=== PATIENT | male | born 1945 | race Caucasian/White ===

== ENCOUNTER 2017-04-09 06:22 | Day surgery (SDC) | payer BC, MEDICARE ==
[~2017-04-09 06:22] MED LIST: Lactated Ringers 1,000 ML IV SCH
[2017-04-09] MEDS ORDERED: Acetaminophen 1,000 MG in Premix Bag 1 BAG IV ONE (07:52)
[2017-04-09] MEDS ORDERED: Bupivacaine 0.25%/EPINEPHrine 1:200,000 30 ML SDV ONE (08:16)
[2017-04-09] MEDS ORDERED: Ondansetron 4 MG/2 ML SDV ONE (08:21)
[2017-04-09] MEDS ORDERED: ceFAZolin 1 GM Vial ONE (08:21)
[2017-04-09] MEDS ORDERED: Ketorolac 30 MG/ML SDV ONE (08:21)
[2017-04-09] MEDS ORDERED: fentaNYL 100 MCG/2 ML SDV ONE (08:32)
[2017-04-09] MEDS ORDERED: Midazolam 1 MG/ML 2 ML SDV ONE (08:33)
[2017-04-09] MEDS ORDERED: Propofol 200 MG/20 ML SDV ONE (08:33)
[2017-04-09] MEDS ORDERED: Ketamine 200 MG/20 ML MDV ONE (08:33)
[2017-04-09] MEDS ORDERED: Bupivacaine 0.25%/EPINEPHrine 1:200,000 30 ML SDV INJECT ONE (08:43)
[2017-04-09 11:03] VITALS: BP 140/71
[2017-04-09] MEDS ORDERED: Acetaminophen/oxyCODONE 325-5 MG Tab PO PRN (11:03)
--- NOTE | 2017-04-09 17:27 | OR ---
PREOPERATIVE DIAGNOSIS: Left indirect inguinal hernia. POSTOPERATIVE DIAGNOSIS: Left indirect inguinal hernia. PROCEDURE PROPOSED: Left indirect inguinal hernia repair with mesh. PROCEDURE DONE: Left indirect inguinal hernia repair with mesh. INDICATION: This is a 71-year-old gentleman with a symptomatic left inguinal hernia and has developed recently. He has had a previous right-sided repair by myself a few years ago. TECHNIQUE: The patient was brought to the operative suite, given a general laryngeal mask anesthetic. The left groin was sterilely prepped and draped. The skin was locally anesthetized with 0.25% Marcaine with epinephrine. An oblique incision was made in the left groin and carried down through the subcutaneous tissue. The external oblique fascia was opened along its direction of fibers. The ilioinguinal nerve was isolated and preserved throughout the dissection. The patient was found to have an indirect hernia sac. It was freed up from the cord structures. He also had a cord lipoma that was trimmed away from the cord structures and removed by cautery at the internal ring. After freeing up the hernia sac, it was reduced and held in place with a plug of mesh which was anchored with several stitches of 0 Ethibond suture. I then placed a flat patch piece of mesh across the entire inguinal floor and around the inguinal cord and anchored medially to the symphysis pubis, inferiorly to the inguinal ligament, superiorly to the internal oblique, and placed around the cord and anchored over several Ethibond sutures. The cord and nerve were placed back in the normal position and the external oblique fascia was closed over the cord with a running 3-0 Vicryl. The subcutaneous tissue reapproximated with interrupted 3-0 Vicryl. The skin was closed with a subcuticular stitch of 4-0 Vicryl and a sterile dressing was applied. He tolerated the procedure well. There was minimal blood loss. He was awakened and taken to recovery room in good condition. SCM: 04/09/2017 09:22:02 MODL: 04/09/2017 17:21:46 /[id number]
== END 2017-04-09 14:30 | disposition home or self-care (01) ==
LOC: VM.SDS 06:22
PROVIDERS: ATTEND Surgery
DX: K40.90 Unilateral inguinal hernia, without obstruction or gangrene, not specified as recurrent (principal); E78.00 Pure hypercholesterolemia, unspecified; Z90.49 Acquired absence of other specified parts of digestive tract; Z98.890 Other specified postprocedural states; Z79.82 Long term (current) use of aspirin; Z79.899 Other long term (current) drug therapy
CPT/HCPCS: 49505; A9270; C1781; J0690; J1885; J2250; J2405; J2704; J3010; J7120; 00830

== ENCOUNTER 2022-03-26 17:26 | Emergency (ER) | payer MEDICARE, BC ==
[2022-03-26] MEDS ORDERED: Tetracaine HCl/PF 0.5% 4 ML Bottle EYERT ONE (17:39)
[2022-03-26] MEDS ORDERED: Fluorescein 1 MG Ophth Strip EYERT ONE (17:40)
[2022-03-26] MEDS ORDERED: Erythromycin Base 0.5% Ophth Oint 3.5 GM Tube EYEBOTH ONE (18:13)
[2022-03-26 18:54] VITALS: BP 181/76; PULSE 47
== END 2022-03-26 18:28 | disposition home or self-care (01) ==
LOC: VM.ED 17:26
DX: T15.91XA Foreign body on external eye, part unspecified, right eye, initial encounter (principal); I25.10 Atherosclerotic heart disease of native coronary artery without angina pectoris; Z79.899 Other long term (current) drug therapy
CPT/HCPCS: 99283; A9270

== ENCOUNTER 2024-05-08 16:26 | Emergency (ER) | payer MEDICARE, BC ==
[2024-05-08] MEDS: Proparacaine 0.5% Ophth Soln 15 ML Bottle EYERT PRN (16:58)
[2024-05-08] MEDS: Fluorescein 1 MG Ophth Strip EYELF ONE (16:59)
[2024-05-08] MEDS: Erythromycin Base 0.5% Ophth Oint 3.5 GM Tube EYEBOTH ONE (17:28)
[2024-05-08 17:45] VITALS: BP 138/60; PULSE 55
[2024-05-08] MEDS ORDERED: Gentamicin 0.3% Ophth Soln 5 ML Bottle EYEBOTH SCH (21:00)
== END 2024-05-08 17:30 | disposition home or self-care (01) ==
LOC: VM.ED 16:26
DX: H10.33 Unspecified acute conjunctivitis, bilateral (principal); I10 Essential (primary) hypertension; I25.10 Atherosclerotic heart disease of native coronary artery without angina pectoris; E78.00 Pure hypercholesterolemia, unspecified; Z90.49 Acquired absence of other specified parts of digestive tract; Z79.899 Other long term (current) drug therapy; Z79.82 Long term (current) use of aspirin
CPT/HCPCS: 99282; J3490

== ENCOUNTER 2024-10-28 10:32 | Day surgery (SDC) | payer MEDICARE, BC ==
[2024-10-28] MEDS ORDERED: fentaNYL 100 MCG/2 ML SDV ONE (12:09)
[2024-10-28] MEDS ORDERED: Propofol 200 MG/20 ML SDV ONE ×2 (12:09→12:45)
[2024-10-28 13:26] VITALS: BP 134/80; PULSE 53
== END 2024-10-28 13:55 | disposition home or self-care (01) ==
LOC: VM.SDS 10:32
PROVIDERS: ATTEND Family Medicine
DX: Z12.11 Encounter for screening for malignant neoplasm of colon (principal); K57.30 Diverticulosis of large intestine without perforation or abscess without bleeding; Z86.0100 Personal history of colon polyps, unspecified; I10 Essential (primary) hypertension; E78.00 Pure hypercholesterolemia, unspecified
CPT/HCPCS: J2704; J3010